=== PATIENT | female | born 1980 | race Caucasian/White ===

== ENCOUNTER 2017-01-15 07:57 | Observation (INO) | payer BC ==
[~2017-01-15] VITALS: Ht 167.6 cm; Wt 55.3 kg
[2017-01-15] VITALS (8 sets, daily range): BP systolic 100–117; BP diastolic 51–68
[~2017-01-15 07:57] MED LIST: CLINDAMYCIN 900MG PREMIX 50 ML IV PRN; HYDROmorphone 2 MG/ML VIAL IV PRN; L-NO1TBD10 PO; LIDOCAINE 1% PF 2 ML VIAL. ID PRN; MULT1TAB52 PO; ONDANSETRON PF 4 MG/2 ML VIAL. IV PRN; PROCHLORPERAZINE 10 MG/2 ML VIAL. IV PRN; TOPI25TA52 PO; TRAM50TA PO
[2017-01-15] MEDS ORDERED: ESTROGENS, CONJ VAGINAL CREAM 30GM TUBE. ONE (08:20)
[2017-01-15] MEDS ORDERED: LIDOCAINE 1%/EPI 1:100,000 20 ML VIAL. ONE (08:20)
[2017-01-15] MEDS ORDERED: SURGICEL HEMOSTAT 4X8 EACH. ONE (08:20)
[2017-01-15 08:26] LABS: NEG OBC UR NEG; POS OBC UR POS
[2017-01-15] MEDS: IV RINGERS,LACTATED 1000ML 1,000 ML IV SCH ×2 (08:42→11:26)
[2017-01-15 08:47] LABS: BASO % 0 % (0-3); EOS % 2 % (0-3); HEMATOCRIT 40.4 % (36.0-47.0); HEMOGLOBIN 13.2 g/dL (12.0-15.5); LYMPH # 2.3 x10^3/uL (1.0-4.8); LYMPH % 33 % (24-48); MEAN CORPUSCULAR HEMOGLOBIN 27 pg (25-35); MEAN CORPUSCULAR HGB CONC 33 g/dL (31-37); MEAN CORPUSCULAR VOLUME 83 fL (79-100); MONO % 7 % (0-9); NEUT % 58 % (31-73); PLATELET COUNT 235 x10^3/uL (140-400); RED BLOOD COUNT 4.88 x10^6/uL (3.50-5.40); RED CELL DISTRIBUTION WIDTH 16.2 % (11.5-14.5)
[2017-01-15] MEDS ORDERED: LIDOCAINE 2% PF Vial for OR 5 ML VIAL. ONE (08:59)
[2017-01-15] MEDS ORDERED: PROPOFOL 20 ML IV ONE (08:59)
[2017-01-15] MEDS ORDERED: fentaNYL PF VIAL 100 MCG/2 ML VIAL ONE ×2 (09:00→10:51)
[2017-01-15] MEDS ORDERED: ONDANSETRON PF 4 MG/2 ML VIAL. ONE (09:00)
[2017-01-15] MEDS ORDERED: DEXAMETHASONE SOD PHOS 20 MG/5 ML VIAL. ONE (09:00)
[2017-01-15] MEDS ORDERED: ROCURONIUM 100 MG/10 ML VIAL. ONE (09:00)
[2017-01-15] MEDS ORDERED: MIDAZOLAM HCL/PF 2 MG/2 ML VIAL. ONE (09:02)
[2017-01-15] MEDS ORDERED: BUPIVACAINE-EPI 0.25%-1:200000 MPF 30 ML VIAL. INJ ONE (10:15)
[2017-01-15] MEDS ORDERED: NEOSTIGMINE METHYLSULFATE 5 MG/5 ML SYRINGE. ONE (10:33)
[2017-01-15] MEDS ORDERED: GLYCOPYRROLATE 1 MG/5 ML VIAL. ONE (10:34)
[2017-01-15] MEDS ORDERED: SEVOFLURANE 61 TO 120 MINUTES. IH ONE (10:46)
[2017-01-15] MEDS ORDERED: KETOROLAC 30 MG/ML INJ FOR OR. INJ ONE (10:46)
--- NOTE | 2017-01-15 11:21 | PDOC ---
BRIEF OPERATIVE NOTE Pre-Op Diagnosis 1. Fibroids 2. AUB 3. Dysmenorrhea Post-Op Diagnosis SAme Procedure Performed [facility] Surgeon Dr. Gracia Anesthesia Type: General Blood Loss 100 ml Specimens Obtained uterus and cervix Findings enlarged fibroid uterus, nml fallopian tubes and ovaries amna. Complications none FRANSISCO GRACIA Jr, MD Jan 15, 2017 11:21
[2017-01-15] MEDS ORDERED: PROCHLORPERAZINE 10 MG/2 ML VIAL. IV PRN (11:30)
[2017-01-15] MEDS ORDERED: ZOLPIDEM 5 MG TABLET. PO PRN (11:30)
[2017-01-15] MEDS ORDERED: DEXTROSE 50% 25 GM / 50ML DISP.SYRIN. IV PRN (11:30)
[2017-01-15] MEDS ORDERED: KETOROLAC 30 MG/ML INJ. IV PRN (11:30)
[2017-01-15] MEDS ORDERED: diphenhydrAMINE HCL 25 MG CAPSULE PO PRN (11:30)
[2017-01-15] MEDS ORDERED: 0.9 % SODIUM CHLORIDE 10 ML DISP.SYRIN. IV PRN (11:30)
[2017-01-15] MEDS ORDERED: SIMETHICONE 80 MG TAB.CHEW PO PRN (11:30)
[2017-01-15] MEDS ORDERED: CALCIUM CARBONATE 500 MG TAB.CHEW PO PRN (11:30)
[2017-01-15] MEDS ORDERED: diphenhydrAMINE 50 MG/ML VIAL IV PRN (11:30)
[2017-01-15] MEDS ORDERED: oxyCODONE/APAP 5/325 1 TAB TABLET PO PRN (11:30)
[2017-01-15] MEDS ORDERED: ONDANSETRON PF 4 MG/2 ML VIAL. IV PRN (11:30)
--- NOTE | 2017-01-15 11:54 | OP ---
DATE OF SURGERY: 01/15/2017 PREOPERATIVE DIAGNOSES: 1. Fibroids. 2. Abnormal uterine bleeding. 3. Dysmenorrhea. POSTOPERATIVE DIAGNOSES: 1. Fibroids. 2. Abnormal uterine bleeding. 3. Dysmenorrhea. PROCEDURE: Laparoscopically-assisted vaginal hysterectomy. SURGEON: Fransisco Gracia MD ANESTHESIA: GETA. ESTIMATED BLOOD LOSS: 100 mL. COMPLICATIONS: None. FINDINGS: Enlarged fibroid uterus with fibroid into the right broad ligament. Normal fallopian tubes and ovaries bilaterally. SUMMARY: A 36-year-old female with history of fibroids, abnormal uterine bleeding and dysmenorrhea who required LAVH. The patient was counseled on the risks, benefits and expectations and voiced clear understanding to proceed. DESCRIPTION OF PROCEDURE: The patient was taken to surgery suite and placed in dorsal lithotomy position. She was prepped with Betadine solution for vaginal prep and ChloraPrep for abdominal prep. After adequate anesthesia, bivalve speculum was placed vaginally. Anterior lip of the cervix was grasped with a single tooth tenaculum. The Valtchev uterine manipulator was then placed. The bivalve speculum was removed. Attention was now placed on abdomen. Small transverse skin incision was made just below the umbilicus with a scalpel. The Veress needle was then placed through the infraumbilical incision site. The abdomen was allowed to insufflate up to 1.5 liters CO2 gas. The Veress needle was then removed. A 5 mm trocar was placed. The scope was positioned. The uterus was enlarged with multiple fibroids. There was a large fibroid off the right broad ligament. Fallopian tubes and ovaries appeared normal bilaterally. Two additional incisions were made in the left lower quadrant in which 5 mm trocars were placed. With the aid of the EnSeal device and graspers, the right broad ligament was coagulated and dissected. The right fallopian tube was dissected away from the pelvic sidewall and ovary. The right broad ligament was coagulated and dissected down to the uterine artery. Same process took place for the left adnexa. Bladder flap was created with blunt dissection along with EnSeal device. Suction irrigation was utilized to verify good hemostasis. We then proceeded vaginally. Weighted speculum and curved David placed vaginally. The single tooth tenaculum and Valtchev uterine manipulator was then removed. Olivier clamps were placed on the anterior and posterior lip of the cervix. Lidocaine 1% with epinephrine was injected circumferentially around the cervix. Bovie cautery was utilized to circumscribe the cervix. The vaginal mucosa was then dissected away from the lower uterine segment using blunt dissection and moist Ray-Estefany. We then entered the posterior cul-de-sac using sharp dissection with curved Rowe scissors. The anterior cul-de-sac was entered bluntly. Uterosacral ligaments, cardinal ligaments were clamped bilaterally, cut and suture ligated. The cervix and uterus were then dissected away from the large fibroid and removed. The large fibroid on the right broad ligament was then dissected free from the right pelvic sidewall in which a curved Dorian clamp was placed. Suture ligation was performed with 2-0 Vicryl suture and the large fibroid was then removed. The pedicles were all hemostatic. A modified Santiago culdoplasty was performed incorporating uterosacral ligaments bilaterally. The remainder of the vaginal cuff was reapproximated using 2-0 Vicryl suture in a [id number] manner. Moist vaginal packing was placed. Attention was once again placed on abdomen. The abdomen was insufflated with CO2 gas to 1.5 liters. The scope was positioned. The pedicles were all hemostatic and verified with suction irrigation. Both ureters were visualized and functioning properly. The trocars were then removed under direct visualization. The abdomen was allowed to deflate as much as possible along with mechanical manipulation. The 3 skin incisions were reapproximated using 4-0 Vicryl suture in subcuticular manner. Marcaine 0.25% with epinephrine was injected at each incision site. The patient tolerated the procedure well and was taken to recovery room in stable condition. Sponge and needle count correct x 3. FRANSISCO GRACIA MD DR: COLE/evangelist JOB#: [id number] / [id number]
[2017-01-15] MEDS: MORPHINE SULFATE 2 MG/ML DISP.SYRIN. IV PRN ×2 (11:57→12:14)
[2017-01-15] MEDS: GABAPENTIN 300 MG CAPSULE. PO SCH ×2 (14:00→21:59)
[2017-01-16 03:20] VITALS: BP 115/53
[2017-01-16] MEDS: GABAPENTIN 300 MG CAPSULE. PO SCH (06:10)
[2017-01-16 06:12] LABS: BASO % 0 % (0-3); EOS % 0 % (0-3); HEMATOCRIT 37.1 % (36.0-47.0); HEMOGLOBIN 12.3 g/dL (12.0-15.5); LYMPH # 2.1 x10^3/uL (1.0-4.8); LYMPH % 17 % (24-48); MEAN CORPUSCULAR HEMOGLOBIN 27 pg (25-35); MEAN CORPUSCULAR HGB CONC 33 g/dL (31-37); MEAN CORPUSCULAR VOLUME 81 fL (79-100); MONO % 8 % (0-9); NEUT % 75 % (31-73); PLATELET COUNT 240 x10^3/uL (140-400); RED BLOOD COUNT 4.58 x10^6/uL (3.50-5.40); RED CELL DISTRIBUTION WIDTH 15.9 % (11.5-14.5); WHITE BLOOD COUNT 12.1 x10^3/uL (4.0-11.0)
[2017-01-16 06:39] VITALS: BP 132/69
[2017-01-16] MEDS ORDERED: FLU VACC QS2017-18 (36MOS+)/PF 0.5 ML SYRINGE. VAX IM ONE (12:00)
--- NOTE | 2017-01-16 14:34 | PATHOLOGY ---
PATHOLOGY REPORT * * * * * * * * FINAL DIAGNOSIS: Uterus, cervix and fallopian tubes "uterus, cervix, bilateral fallopian tubes, hysterectomy and bilateral salpingectomy": - Cervix revealing chronic cervicitis. - Disordered proliferative phase endometrium without any evidence of hyperplasia or malignancy. - Multiple submucosal and intramural leiomyomas measuring up to 5.5 cm in greatest dimension without any significant atypia, increased mitoses or necrosis. - Fallopian tubes with benign paratubal cysts. (SHA:mmpatrizia; 01/16/2017) REPORT ELECTRONICALLY SIGNED BY: Jax Castro M.D. DATE/TIME: 01/16/2017 13:04 * * * * * * * * GROSS PATHOLOGY: Received in formalin labeled "Bindu Childers, uterus, cervix, bilateral tubes" is a fragmented hysterectomy specimen with attached fallopian tubes. The specimen is received in three pieces, with the cervix detached and able to be oriented. The uterine fundus is not able to be oriented. The attached fallopian tubes are not able to be oriented. The uterus and cervix weigh 112 g and measures 12.2 cm from uterine fundus to ectocervix, 5.5 cm from cornu to cornu, and 4.3 cm from anterior to posterior when reassembled. The cervical os is round and measures 1.5 x 1.3 cm. The ectocervix and the uterine serosa are smooth and glistening. The cervical os is probed patent, and the cervix is bisected to reveal an endocervical canal measuring 4.8 x 0.7 cm. The endometrial cavity measures 2.3 x 1.3 cm. The average endometrial thickness is 0.1 cm and the average myometrial thickness is 1.5 cm. The uterus is serially sectioned to reveal 3 white-galvez whirled leiomyomata without hemorrhage or necrosis ranging from 0.6 x 0.5 x 0.5 cm 5.5 x 4.6 x 4.6 cm. The attached fimbriated fallopian tubes measure 5.0 cm in length and 0.6 cm in diameter and 6.0 cm in length and 0.7 cm in diameter. Both fallopian tubes have a pink-galvez smooth external surface and are serially sectioned to reveal a pinpoint lumen. No gross abnormalities are identified. Button Breaker Operator sections of the specimen are submitted as follows: A1 12:00 cervix A2 6:00 cervix A3-A4 bottling equipment sales representative endomyometrium A5 bottling equipment sales representative leiomyomata A6-A7 bottling equipment sales representative sections and one half of the fimbriated end of both fallopian tubes ([facility] [place]; 01/15/2017) INITIAL CPT CODE(S): A; 51361 Professional services performed by [facility] at [address] [address] Technical services performed by [facility] at [address] [place] [address], [facility] [address], [place] [address]. SPECIMEN(S) RECEIVED: A.Uterus, cervix, bilateral fallopian tubes CLINICAL HISTORY: DUB, fibroids PATIENT: BINDU CHILDERS /AGE: 811/10/1980 (Age: 36) PATIENT #: [id number] ALT CASE #: SPECIMEN COLLECTION DATE: 01/15/2017 SPECIMEN RECEIVED DATE: 01/15/2017 [facility] - [id number] [place] [address] - PHONE: [phone] * * * END OF REPORT * * *
--- NOTE | 2017-01-16 14:53 | PDOC ---
SURGICAL PROGRESS NOTE Subjective PT. feeling well. Pain controlled. Pt. ambulating, voiding and tolerating regular diet. Vital Signs Vital Signs Date Time Temp Pulse Resp B/P (MAP) Pulse Ox O2 Delivery O2 Flow Rate FiO2 01/16/17 06:39 98.1 61 18 132/69 (90) 98 98.1 01/16/17 03:20 Room Air 01/15/17 11:36 10 PATIENT HAS A MAYNARD: No General: Alert, Oriented X3, Cooperative HEENT: Atraumatic Lungs: Clear to auscultation Heart: Regular rate Abdomen: Normal bowel sounds, Soft, No masses Extremities: No edema Psych/Mental Status: Mental status NL Labs Laboratory Tests Test 01/15/17 08:00 01/15/17 08:20 01/16/17 05:15 Urine Test Negative (NEG) White Blood Count 7.0 x10^3/uL (4.0-11.0) 12.1 x10^3/uL (4.0-11.0) Red Blood Count 4.88 x10^6/uL (3.50-5.40) 4.58 x10^6/uL (3.50-5.40) Hemoglobin 13.2 g/dL (12.0-15.5) 12.3 g/dL (12.0-15.5) Hematocrit 40.4 % (36.0-47.0) 37.1 % (36.0-47.0) Mean Corpuscular Volume 83 fL (79-100) 81 fL (79-100) Mean Corpuscular Hemoglobin 27 pg (25-35) 27 pg (25-35) Mean Corpuscular Hemoglobin Concent 33 g/dL (31-37) 33 g/dL (31-37) Red Cell Distribution Width 16.2 % (11.5-14.5) 15.9 % (11.5-14.5) Platelet Count 235 x10^3/uL (140-400) 240 x10^3/uL (140-400) Neutrophils (%) (Auto) 58 % (31-73) 75 % (31-73) Lymphocytes (%) (Auto) 33 % (24-48) 17 % (24-48) Monocytes (%) (Auto) 7 % (0-9) 8 % (0-9) Eosinophils (%) (Auto) 2 % (0-3) 0 % (0-3) Basophils (%) (Auto) 0 % (0-3) 0 % (0-3) Neutrophils # (Auto) 4.0 x10^3uL (1.8-7.7) 9.1 x10^3uL (1.8-7.7) Lymphocytes # (Auto) 2.3 x10^3/uL (1.0-4.8) 2.1 x10^3/uL (1.0-4.8) Monocytes # (Auto) 0.5 x10^3/uL (0.0-1.1) 0.9 x10^3/uL (0.0-1.1) Eosinophils # (Auto) 0.2 x10^3/uL (0.0-0.7) 0.0 x10^3/uL (0.0-0.7) Basophils # (Auto) 0.0 x10^3/uL (0.0-0.2) 0.0 x10^3/uL (0.0-0.2) Laboratory Tests Test 01/16/17 05:15 White Blood Count 12.1 x10^3/uL (4.0-11.0) Red Blood Count 4.58 x10^6/uL (3.50-5.40) Hemoglobin 12.3 g/dL (12.0-15.5) Hematocrit 37.1 % (36.0-47.0) Mean Corpuscular Volume 81 fL (79-100) Mean Corpuscular Hemoglobin 27 pg (25-35) Mean Corpuscular Hemoglobin Concent 33 g/dL (31-37) Red Cell Distribution Width 15.9 % (11.5-14.5) Platelet Count 240 x10^3/uL (140-400) Neutrophils (%) (Auto) 75 % (31-73) Lymphocytes (%) (Auto) 17 % (24-48) Monocytes (%) (Auto) 8 % (0-9) Eosinophils (%) (Auto) 0 % (0-3) Basophils (%) (Auto) 0 % (0-3) Neutrophils # (Auto) 9.1 x10^3uL (1.8-7.7) Lymphocytes # (Auto) 2.1 x10^3/uL (1.0-4.8) Monocytes # (Auto) 0.9 x10^3/uL (0.0-1.1) Eosinophils # (Auto) 0.0 x10^3/uL (0.0-0.7) Basophils # (Auto) 0.0 x10^3/uL (0.0-0.2) Assessment/Plan A: POD#1 s/p BLAS P: d/c home Problems: FRANSISCO CARMONA Jr, MD Jan 16, 2017 14:53
--- NOTE | 2017-01-16 14:54 | DISCH ---
DISCHARGE INSTRUCTIONS Condition on Discharge Condition on Discharge: Stable Activity After Discharge Activity Instructions for Disc: Activity as tolerated Lifting Instructions after Dis: No heavy lifting Driving Instructions after Dis: No driving for 2 weeks Diet after Discharge Diet after Discharge: Regular Contacting the DRGiovany after DC Call your doctor for: Concerns you may have Follow-Up Follow up with: Dr. Gracia in 2 weeks. FRANSISCO GRACIA Jr, MD Jan 16, 2017 14:54
[2017-01-16] MEDS ORDERED: IBUP-1060 PO (14:56)
[2017-01-16] MEDS ORDERED: OXYC-323 PO (14:56)
[2017-01-16] MEDS ORDERED: DOCU-109 PO (14:56)
[2017-01-16 16:03] VITALS: BP 125/54
== END 2017-01-16 16:12 | disposition home or self-care (01) ==
LOC: SURG 07:57 → 3 NORTH 11:21
PROVIDERS: ADMIT Obstetrics & Gynecology; ATTEND Obstetrics & Gynecology
DX: D25.9 Leiomyoma of uterus, unspecified (principal); N93.9 Abnormal uterine and vaginal bleeding, unspecified; N94.6 Dysmenorrhea, unspecified
CPT/HCPCS: 36415; 58550; 81025; 85025; 86850; 86900; 86901; 88307; 96374; A4215; G0378; G0379; J0780; J1100; J1885; J2250; J2270; J2405; J2704; J2710; J3010; J3490; J7030; J7120; J2001